=== PATIENT | male | born 1930 | race Caucasian/White ===

== ENCOUNTER 2016-04-07 13:45 | Emergency (ER) | payer OTHER ==
[~2016-04-07] VITALS: Ht 167.6 cm; Wt 70.5 kg
[~2016-04-07 13:45] MED LIST: AMLO10 PO; FISH1000 PO; MELO15TA2 PO; MEVA40TA PO; ROBA750T3 PO; TAB-TAB PO
[2016-04-07 13:50] VITALS: BP 149/84; PULSE 59; RESP 20; TEMP 97.9; O2SAT 95
--- NOTE | 2016-04-07 14:36 | PD ---
Physical Exam Time Seen by Provider: 14:36 Narrative 85-year-old male presents to emergency department for evaluation of right shoulder pain. Patient states that he was walking to the [place] to eat dinner at his assisted living facility when the pain occurred. He states that his shoulder felt like it froze. He has history of shoulder replacement in that side by . Denies any recent injury. No fever or chills. States it is very painful when he attempted to raise the shoulder but now that feeling has subsided. He states he is able to move it again. Denies any headache. No chest pain or tightness. No shortness of breath. States that it was isolated to the shoulder and it was shoulder pain. No other symptoms to report. Data Data Last Documented VS Vital Signs Date Time Temp Pulse Resp B/P Pulse Ox O2 Delivery O2 Flow Rate FiO2 04/07/16 13:50 97.9 59 20 149/84 95 Room Air Orders Shoulder, Complete (>2vws) (04/07/16 ) MDM Medical Record Reviewed: Yes Supervised Visit with MARTÍN: No Differential Diagnosis Instrumentation malfunction versus osteoarthritis versus neuralgia versus cervical radiculopathy versus muscle spasm Narrative Course 85-year-old male presents to emergency department for evaluation of right shoulder pain that has "eased." Patient now has full range motion of the right shoulder. He would like an x-ray to make sure that the shoulder is okay as it has been replaced. ros negative except for what is in history of present illness GENERAL: Well-nourished, well-developed elderly male patient, in no acute distress SKIN: Warm and dry. HEAD: Normocephalic. EYES: No scleral icterus. No injection or drainage. NECK: Supple, trachea midline. No JVD or lymphadenopathy. CARDIOVASCULAR: Regular rate RESPIRATORY: No accessory muscle use. MUSCULOSKELETAL: No cyanosis, or edema. No deformity. Patient has full abduction and abduction of the right shoulder. He is able to externally and internally rotated. Distal pulses are palpable. Sensation intact distal affected extremity. Shoulder x-ray is ordered here in the triage area. It results no evidence of shoulder instrumentation dislocation, fracture, or other acute abnormality. I have shared this with the patient. He is very happy with the serosal to 90 be discharged. I explained him to follow-up with Dr. Burks if symptoms persist and return immediately with any acute worsening of symptoms. Diagnosis Primary Impression: Right shoulder pain Qualified Code: M25.511 - Acute pain of right shoulder Referrals: Orthopaedic Surgeon Primary Care Physician Patient Instructions: General Instructions, Shoulder Pain (ED) Additional Instruction: follow up with your primary care provider tylenol or ibuprofen as directed on the package as needed for pain return with acute worsening of symptoms Med/Other Pt SpecificInfo: No Change to Meds Disposition: 01 DISCHARGE HOME Condition: Stable Karyna Liao Apr 07, 2016 14:36
--- NOTE | 2016-04-07 15:17 | RADRPT ---
EXAM DATE/TIME: 04/07/2016 14:58 [facility] COMPARISON: No previous studies available for comparison. INDICATIONS : Right shoulder pain. Pain after moving a chair. MEDICAL HISTORY : None. SURGICAL HISTORY : Right shoulder replacement, 3 years ago. ENCOUNTER: Initial ACUITY: 1 day PAIN SCORE: 0/10 LOCATION: Right shoulder. FINDINGS: Multiple views of the right shoulder demonstrate a total right shoulder prosthesis which appears appr opriate in position. No evidence of fracture or dislocation. The imaged lung is clear. Spinal fusion hardware noted. CONCLUSION: No evidence of prosthesis dislocation, fracture or other acute abnormality. Candelaria Bonilla MD on April 07, 2016 at 15:13 Board Certified Radiologist. This report was verified electronically.
[2016-04-07] MEDS ORDERED: LOVA40TA PO (16:26)
[2016-04-07] MEDS ORDERED: POTA10CA PO (16:26)
[2016-04-07] MEDS ORDERED: MULT1TAB84 PO (16:26)
[2016-04-07] MEDS ORDERED: AMLO10TA2 PO (16:26)
[2016-04-07] MEDS ORDERED: RANI150C PO (16:26)
== END 2016-04-07 16:38 | disposition home or self-care (01) ==
LOC: NETRI 13:45
DX: M25.511 Pain in right shoulder (principal)
CPT/HCPCS: 73030; 99283